=== PATIENT | female | born 1985 | race Caucasian/White ===

== ENCOUNTER 2018-12-13 14:17 | Emergency (ER) | payer SELFPAY ==
[~2018-12-13] VITALS: Ht 167.6 cm; Wt 81.6 kg
[2018-12-13 15:27] LABS: BILIRUBIN,URINE NEGATIVE (NEG); CLARITY,URINE CLEAR; COLOR,URINE YELLOW
[2018-12-13 15:28] LABS: BACTERIA,URINE 0 /HPF (0-FEW); NITRITE,URINE NEGATIVE (NEG); PROTEIN,URINE NEGATIVE (NEG-TRACE); SQUAMOUS EPITHELIAL CELL,UR OCC /LPF; UROBILINOGEN,URINE 0.2 mg/dL (0.2 mg/dL)
[2018-12-13] MEDS ORDERED: cefTRIAXone IM 250 MG VIAL IM ONE (16:00)
[2018-12-13] MEDS ORDERED: AZITHROMYCIN 250 MG TABLET. PO ONE (16:00)
[2018-12-13] MEDS ORDERED: METR500T PO (16:25)
[2018-12-13 16:27] VITALS: BP 115/68
--- NOTE | 2018-12-13 16:27 | PHYS DOC ---
Past Medical History Past Medical History: Anxiety, Depression, Kidney Stone, Other Additional Past Medical Histor: SI/HI Past Surgical History: Cholecystectomy, Tubal ligation Additional Information: 0.5 PPD Alcohol Use: Occasionally Drug Use: Marijuana Adult General Chief Complaint Chief Complaint: MULTIPLE COMPLAINTS HPI HPI Patient is a 33 year old female, accompanied by her mother, with complaints of pelvic pain, vaginal bleeding after intercourse this week, and foul-smelling vaginal odor for the last 4 months. She denied any abdominal pain, constipation, nausea, vomiting, diarrhea, dysuria, hematuria, back pain, or fever. She states that with the onset of symptoms she had began having sexual intercourse with a new partner. Currently, her pain is a 7/10, there are no alleviating or exacerbating factors. Review of Systems Review of Systems Constitutional: Denies fever or chills [] GI: Denies abdominal pain, nausea, vomiting, or diarrhea [] : Denies dysuria or hematuria; see HPI [] Musculoskeletal: Denies back pain or joint pain [] Integument: Denies rash or skin lesions [] Neurologic: Denies headache Complete systems were reviewed and found to be within normal limits, except as documented in this note. Current Medications Current Medications Current Medications Medications (Trade) Dose Ordered Sig/Ria Start Time Stop Time Status Last Admin Dose Admin Azithromycin (Zithromax) 1,000 mg 1X ONCE 12/13/18 16:00 12/13/18 16:01 DC 12/13/18 16:21 1,000 MG Ceftriaxone Sodium (Rocephin Im) 250 mg 1X ONCE 12/13/18 16:00 12/13/18 16:01 DC 12/13/18 16:21 250 MG Allergies Allergies Allergies Coded Allergies Type Severity Reaction Last Updated Verified No Known Drug Allergies 10/17/14 No Physical Exam Physical Exam Constitutional: Well developed, well nourished, no acute distress, non-toxic appearance. [] HENT: Normocephalic, atraumatic, bilateral external ears normal, nose normal. [] Eyes: conjunctiva normal, no discharge. [] Neck: Normal range of motion, no stridor. [] Pelvic Exam: Abdomen: Nontender External Genitalia: Normal Skin Speculum: Normal vaginal mucosa, friable cervix, bloody cervical discharge noted, foul odor noted Bimanual: No adnexal masses or tenderness, cervical motion tenderness negative chandelier sign Skin: Warm, dry, no erythema, no rash. [] Extremities: No cyanosis, ROM intact Neurologic: Alert and oriented X 3, no focal deficits noted. [] Psychologic: Affect normal, judgement normal, mood normal. [] Current Patient Data Vital Signs Vital Signs Date Time Temp Pulse Resp B/P (MAP) Pulse Ox O2 Delivery O2 Flow Rate FiO2 12/13/18 14:27 98.6 84 16 119/68 (85) 98 Room Air 98.6 Lab Values Laboratory Tests Test 12/13/18 14:30 12/13/18 14:31 Urine Collection Type Unknown Urine Color Yellow Urine Clarity Clear Urine pH 6.0 Urine Specific Tichnor 1.015 Urine Protein Negative mg/dL (NEG-TRACE) Urine Glucose (UA) Negative mg/dL (NEG) Urine Ketones (Stick) Negative mg/dL (NEG) Urine Blood Moderate (NEG) Urine Nitrite Negative (NEG) Urine Bilirubin Negative (NEG) Urine Urobilinogen Dipstick 0.2 mg/dL (0.2 mg/dL) Urine Leukocyte Esterase Trace (NEG) Urine RBC 3-5 /HPF (0-2) Urine WBC 1-4 /HPF (0-4) Urine Squamous Epithelial Cells Occ /LPF Urine Bacteria 0 /HPF (0-FEW) POC Urine HCG, Qualitative Hcg negative (Negative) Microbiology 12/13/18 Wet Prep - Final, Complete EKG EKG [] Radiology/Procedures Radiology/Procedures [] Course & Med Decision Making Course & Med Decision Making Pertinent Labs and Imaging studies reviewed. (See chart for details) dx: Bacterial vaginosis, trichomoniasis, suspected contact with sexually transmitted disease Patient was treated prophylactically with 250 mg of IM Rocephin, and 1 g of PO Zithromax. Patient was instructed to avoid having intercourse until the results of gonorrhea and chlamydia testing are available, patient was notified that these results would not be available for 48 hours. If one or both of these tests is positive, patient needs to refrain from intercourse for approximately 1 week following the treatment of any current partners. A prescription for Flagyl 500 mg twice a day 7 days was written. Patient verbalized an understanding of home care, medications, follow-up, and re turn to ED instructions and was in agreement with the plan of care. [] Dragon Disclaimer Dragon Disclaimer This electronic medical record was generated, in whole or in part, using a voice recognition dictation system. Departure Departure Impression: Primary Impression: Infection due to trichomonas (vaginalis) Additional Impressions: Contact with and (suspected) exposure to infections with a predominantly sexual mode of transmission Bacterial vaginosis Disposition: 01 HOME, SELF-CARE Condition: STABLE Referrals: NO PCP (PCP) Patient Instructions: Bacterial Vaginosis, [id number], Sexually Transmitted Disease, Trichomoniasis-Brief Additional Instructions: Fill the prescription and use as directed. Recommend that you go to your local health department for comprehensive sexually transmitted disease testing. You have been treated for a suspected gonorrhea and chlamydia. Avoid having intercourse until the results of gonorrhea and chlamydia testing are available, these results will not be available for 48 hours. If one or both of these tests is positive, you need to refrain from intercourse for approximately 1 week following the treatment of any current partners. Follow-up with your primary care doctor if symptoms persist, return to ER symptoms worsen. Scripts Metronidazole (FLAGYL) 500 Mg Tablet 1 TAB PO BID for 7 Days, #14 TAB 0 Refills Prov: LUIS ELLIOTT APRN 12/13/18 Problem Qualifiers LUIS ELLIOTT APRN Dec 13, 2018 16:27
[2018-12-14 19:14] LABS: GC PROBE Negative (Negative)
== END 2018-12-13 16:43 | disposition home or self-care (01) ==
LOC: ER 14:17
DX: A59.01 Trichomonal vulvovaginitis (principal); N76.0 Acute vaginitis; B96.89 Other specified bacterial agents as the cause of diseases classified elsewhere; Z20.2 Contact with and (suspected) exposure to infections with a predominantly sexual mode of transmission; F41.9 Anxiety disorder, unspecified; F17.200 Nicotine dependence, unspecified, uncomplicated; F32.9 Major depressive disorder, single episode, unspecified; Z87.442 Personal history of urinary calculi; Z90.49 Acquired absence of other specified parts of digestive tract; Z98.51 Tubal ligation status
CPT/HCPCS: 81001; 81025; 87086; 87491; 87591; 96372; 99285; J0696; Q0111; Q0144

== ENCOUNTER 2019-03-26 11:14 | Emergency (ER) | payer SELFPAY ==
[~2019-03-26] VITALS: Ht 167.6 cm; Wt 81.6 kg
[~2019-03-26 11:14] MED LIST: METR500T PO
[2019-03-26 11:50] VITALS: BP 110/65
--- NOTE | 2019-03-26 12:17 | PHYS DOC ---
Past Medical History Past Medical History: Asthma Additional Past Medical Histor: SI/HI Past Surgical History: Cholecystectomy, Tubal ligation Alcohol Use: Occasionally Drug Use: None Adult General Chief Complaint Chief Complaint: COUGH HPI HPI Patient is a 33 year old female who presents with cough for one month and chest tightness. Patient states she's been using cough drops, NyQuil and DayQuil. Patient states she is an asthmatic and smokes. Patient denies fever. Patient states that she does not have an inhaler and needs one. Patient denies any pain. Review of Systems Review of Systems HENT: nasal congestion or denies sore throat [] Respiratory: cough or shortness of breath [] All other systems were reviewed and found to be within normal limits, except as documented in this note. Allergies Allergies Allergies Coded Allergies Type Severity Reaction Last Updated Verified No Known Drug Allergies 10/17/14 No Physical Exam Physical Exam Constitutional: Well developed, well nourished, no acute distress, non-toxic appearance. [] HENT: Normocephalic, atraumatic, bilateral external ears normal, oropharynx moist, no oral exudates, nose normal. [] Eyes: PERRLA, EOMI, conjunctiva normal, no discharge. [] Neck: Normal range of motion, no tenderness, supple, no stridor. [] Cardiovascular:Heart rate regular rhythm, no murmur [] Lungs & Thorax: Bilateral breath sounds clear to auscultation [] Abdomen: Bowel sounds normal, soft, no tenderness, no masses, no pulsatile masses. [] Skin: Warm, dry, no erythema, no rash. [] Neurologic: Alert and oriented X 3, normal motor function, normal sensory function, no focal deficits noted. [] Psychologic: Affect normal, judgement normal, mood normal. Normal Physical Exam [] Current Patient Data Vital Signs Vital Signs Date Time Temp Pulse Resp B/P (MAP) Pulse Ox O2 Delivery O2 Flow Rate FiO2 03/26/19 11:50 98.0 71 18 110/65 (80) 97 Room Air 98.0 EKG EKG [] Radiology/Procedures Radiology/Procedures [] Course & Med Decision Making Course & Med Decision Making Alert and oriented. Speaks in full sentences. Ambulatory with a steady gait. Skin pink warm and dry. Vital signs within normal limits. Lungs are clear to auscultation in all lobes. Dragon Disclaimer Dragon Disclaimer This electronic medical record was generated, in whole or in part, using a voice recognition dictation system. Departure Departure Impression: Primary Impression: Cough Additional Impression: Asthma Disposition: 01 HOME, SELF-CARE Condition: STABLE Referrals: NO PCP (PCP) Patient Instructions: Asthma, Adult, Cough, Adult Additional Instructions: Follow up with primary care provider. Use medications as prescribed. Scripts Albuterol Sulfate (PROAIR HFA INHALER) 8.5 Gm Hfa.aer.ad 1 PUFF INH PRN Q6HRS PRN for SHORTNESS OF BREATH, #1 INHALER 0 Refills Prov: JOSE EVERETT 03/26/19 Codeine Phosphate/Guaifenesin (Guaifen-Codeine 200-20 mg/10Ml) 10 Ml Liquid 10 ML PO PRN Q6HRS PRN for COUGH, #1 LIQUID Prov: JOSE EVERETT ROAD MANAGER 03/26/19 Methylprednisolone (MEDROL) 4 Mg Tab.ds.pk 1 PKG PO UD, #1 PKG Prov: JOSE EVERETT ROAD MANAGER 03/26/19 Problem Qualifiers Additional Impression: Asthma Asthma severity: mild Asthma persistence: intermittent Asthma complication type: uncomplicated Qualified Codes: J45.20 - Mild intermittent asthma, uncomplicated JOSE EVEERTT ROAD MANAGER Mar 26, 2019 12:17
[2019-03-26] MEDS ORDERED: CODE10LI PO (12:24)
[2019-03-26] MEDS ORDERED: METH4TAB2 PO (12:24)
[2019-03-26] MEDS ORDERED: ALBU2.5V8 INH (12:25)
== END 2019-03-26 12:27 | disposition home or self-care (01) ==
LOC: ER 11:14
DX: J45.20 Mild intermittent asthma, uncomplicated (principal); Z98.51 Tubal ligation status; Z90.49 Acquired absence of other specified parts of digestive tract
CPT/HCPCS: 99283

== ENCOUNTER 2019-04-09 11:57 | Emergency (ER) | payer SELFPAY ==
[~2019-04-09] VITALS: Ht 167.6 cm; Wt 81.6 kg
[~2019-04-09 11:57] MED LIST changes: +ALBU2.5V8 INH; +CODE10LI PO; +METH4TAB2 PO
[2019-04-09 12:21] VITALS: BP 128/83
--- NOTE | 2019-04-09 12:43 | RAD ---
PA and lateral chest. HISTORY: Cough PA and lateral views were taken of the chest. There is no pleural effusion. Heart is normal in size. There is no confluent infiltrate. IMPRESSION: 1. No acute infiltrates. Electronically signed by: Kishan Prieto MD (04/09/2019 12:40 PM) [id number]
[2019-04-09] MEDS ORDERED: ALBU2.5V8 IH (13:15)
--- NOTE | 2019-04-09 13:16 | PHYS DOC ---
Past Medical History Past Medical History: Asthma Additional Past Medical Histor: SI/HI Past Surgical History: Cholecystectomy, Tubal ligation Alcohol Use: Occasionally Drug Use: None Adult General Chief Complaint Chief Complaint: COUGH HPI HPI Patient is a 33 year old female patient with history of smoking presenting to the ED today complaining over dry cough for 3 weeks. Patient states she was seen in the ED 2 weeks ago, was given codeine with promethazine, breathing treatments and prednisone, she states symptoms are still present. Denies any fever. Review of Systems Review of Systems Constitutional: Denies fever or chills [] Eyes: Denies change in visual acuity, redness, or eye pain [] HENT: Denies nasal congestion or sore throat [] Respiratory: Reports cough, denies shortness of breath [] Cardiovascular: No additional information not addressed in HPI [] GI: Denies abdominal pain, nausea, vomiting, bloody stools or diarrhea [] : Denies dysuria or hematuria [] Musculoskeletal: Denies back pain or joint pain [] Integument: Denies rash or skin lesions [] Neurologic: Denies headache, focal weakness or sensory changes [] All other systems were reviewed and found to be within normal limits, except as documented in this note. Allergies Allergies Allergies Coded Allergies Type Severity Reaction Last Updated Verified No Known Drug Allergies 10/17/14 No Physical Exam Physical Exam Constitutional: Well developed, well nourished, no acute distress, non-toxic appearance. [] HENT: Normocephalic, atraumatic, bilateral external ears normal, oropharynx moist, no oral exudates, nose normal. [] Eyes: PERRLA, EOMI, conjunctiva normal, no discharge. [] Neck: Normal range of motion, no tenderness, supple, no stridor. [] Cardiovascular:Heart rate regular rhythm, no murmur [] Lungs & Thorax: Bilateral breath sounds clear to auscultation [] Abdomen: Bowel sounds normal, soft, no tenderness, no masses, no pulsatile masses. [] Skin: Warm, dry, no erythema, no rash. [] Back: No tenderness, no CVA tenderness. [] Extremities: No tenderness, no cyanosis, no clubbing, ROM intact, no edema. [] Neurologic: Alert and oriented X 3, normal motor function, normal sensory function, no focal deficits noted. [] Psychologic: Affect normal, judgement normal, mood normal. [] Current Patient Data Vital Signs Vital Signs Date Time Temp Pulse Resp B/P (MAP) Pulse Ox O2 Delivery O2 Flow Rate FiO2 04/09/19 12:21 98.3 103 18 128/83 (98) 94 Room Air 98.3 EKG EKG [] Radiology/Procedures Radiology/Procedures []PROCEDURE: CHEST PA & LATERAL PA and lateral chest. HISTORY: Cough PA and lateral views were taken of the chest. There is no pleural effusion. Heart is normal in size. There is no confluent infiltrate. IMPRESSION: 1. No acute infiltrates. Electronically signed by: Mary Patel MD (04/09/2019 12:40 PM) [id number] DICTATED and SIGNED BY: MARY PATEL MD DATE: 04/09/19 1240 Course & Med Decision Making Course & Med Decision Making Pertinent Labs and Imaging studies reviewed. (See chart for details) This is a 33-year-old female patient presenting to the ED today with a cough for 3 weeks. Patient was seen in the ED 2 weeks ago and was given codeine with promethazine, breathing treatments and prednisone with no relief. Chest x-ray is negative. Patient was advised to consider smoking cessation. Symptoms are likely bronchitis. Encouraged to continue using breathing treatments and [id number] cough medicines as needed. Dragon Disclaimer Dragon Disclaimer This electronic medical record was generated, in whole or in part, using a voice recognition dictation system. Departure Departure Impression: Primary Impression: Acute bronchitis Additional Impression: Smoking addiction Disposition: 01 HOME, SELF-CARE Condition: STABLE Referrals: NO PCP (PCP) follow up with your doctor in 1-2 weeks Patient Instructions: Acute Bronchitis, [id number] Additional Instructions: You were evaluated in the emergency room with symptoms consistent of viral bronchitis. Your chest x-ray is negative for pneumonia, consider smoking cessation. Follow-up with your doctor in 1-2 weeks. You can take [id number] remedies as needed for your cough. Your prescription was sent to the pharmacy Scripts Albuterol Sulfate (Proair Hfa) 8.5 Gm Hfa.aer.ad 2 PUFF IH PRN Q4-6HRS PRN for wheezing for 21 Days, #1 INHALER 0 Refills Prov: KRYSTAL TEMPLE MAMMOGRAPHER 04/09/19 Problem Qualifiers Primary Impression: Acute bronchitis Bronchitis organism: unspecified organism Qualified Codes: J20.9 - Acute bronchitis, unspecified KRYSTAL TEMPLE MAMMOGRAPHER Apr 09, 2019 13:16
== END 2019-04-09 13:19 | disposition home or self-care (01) ==
LOC: ER 11:57
DX: J20.9 Acute bronchitis, unspecified (principal); F17.200 Nicotine dependence, unspecified, uncomplicated; J45.909 Unspecified asthma, uncomplicated; Z98.51 Tubal ligation status; Z90.49 Acquired absence of other specified parts of digestive tract
CPT/HCPCS: 71046; 99284

== ENCOUNTER 2019-05-07 22:13 | Emergency (ER) | payer SELFPAY ==
[~2019-05-07] VITALS: Ht 172.7 cm; Wt 81.6 kg
[~2019-05-07 22:13] MED LIST changes: +ALBU2.5V8 IH
[2019-05-07 22:53] VITALS: BP 107/57
[2019-05-07 23:14] LABS: INFLUENZA A PATIENT NEGATIVE (NEGATIVE); INFLUENZA B PATIENT NEGATIVE (NEGATIVE)
--- NOTE | 2019-05-07 23:45 | PHYS DOC ---
Past Medical History Past Medical History: Asthma Additional Past Medical Histor: SI/HI Past Surgical History: Cholecystectomy, Tubal ligation Alcohol Use: Occasionally Drug Use: None Adult General Chief Complaint Chief Complaint: COUGH HPI HPI Patient is a 34 year old female who presents with has been here twice in the last 6 months because she has a cough that just won't stop. States now she is coughing up green mucus as well as her last week. She states she will cough so hard that she will urinate on herself. She denies fever. She is a smoker. She does have asthma. She states that she has an inhaler at home and has been on antibiotics and codeine cough syrup is not working. Review of Systems Review of Systems Respiratory: cough or denies shortness of breath [] All other systems were reviewed and found to be within normal limits, except as documented in this note. Allergies Allergies Allergies Coded Allergies Type Severity Reaction Last Updated Verified No Known Drug Allergies 10/17/14 No Physical Exam Physical Exam Constitutional: Well developed, well nourished, no acute distress, non-toxic appearance. [] HENT: Normocephalic, atraumatic, bilateral external ears normal, oropharynx moist, no oral exudates, nose normal. [] Eyes: PERRLA, EOMI, conjunctiva normal, no discharge. [] Neck: Normal range of motion, no tenderness, supple, no stridor. [] Cardiovascular:Heart rate regular rhythm, no murmur [] Lungs & Thorax: Bilateral breath sounds clear to auscultation [] Abdomen: Bowel sounds normal, soft, no tenderness, no masses, no pulsatile masses. [] Skin: Warm, dry, no erythema, no rash. [] Back: No tenderness, no CVA tenderness. [] Extremities: No tenderness, no cyanosis, no clubbing, ROM intact, no edema. [] Neurologic: Alert and oriented X 3, normal motor function, normal sensory function, no focal deficits noted. [] Psychologic: Affect normal, judgement normal, mood normal. Normal Physical Exam[] Current Patient Data Vital Signs Vital Signs Date Time Temp Pulse Resp B/P (MAP) Pulse Ox O2 Delivery O2 Flow Rate FiO2 05/07/19 22:53 98.5 82 14 107/57 (74) 97 Room Air 98.5 Lab Values Laboratory Tests Test 05/07/19 22:38 Influenza Type A Antigen Negative (NEGATIVE) Influenza Type B Antigen Negative (NEGATIVE) EKG EKG [] Radiology/Procedures Radiology/Procedures [] Course & Med Decision Making Course & Med Decision Making Patient has a dry cough. Lungs are clear to auscultation in all lobes. Skin [place] warm and dry. Ambulatory with steady gait. No respiratory distress. Bilateral tympanic is pearly white. Throat is pink without exudates. Alert and oriented. Influenza is negative. Vital signs within normal limits. She denies chest pain, shortness of breath, abdominal pain, nausea, vomiting, diarrhea, fever, dizziness, headache, visual changes, weakness, numbness or tingling, ear pain, nasal congestion. Chest xray read as no acute findings. Patient is also tested for Pertussis since her cough has been on going. Dragon Disclaimer Dragon Disclaimer This electronic medical record was generated, in whole or in part, using a voice recognition dictation system. Departure Departure Impression: Primary Impression: Asthma Disposition: HOME, SELF-CARE Condition: STABLE Referrals: NO PCP (PCP) SLIME REDDY MD Patient Instructions: Asthma, Adult Additional Instructions: Follow-up with primary care provider or pulmonary that I have referred due to. Stop smoking. Take medication as prescribed. Scripts Codeine Phosphate/Guaifenesin (Guaifen-Codeine 200-20 mg/10Ml) 10 Ml Liquid 10 ML PO Q6HRS, #200 ML Prov: EBONY EVERETTSumi Wood APR05/08/19 Albuterol Sulfate (PROAIR HFA INHALER) 8.5 Gm Hfa.aer.ad 1 PUFF INH PRN Q6HRS PRN for SHORTNESS OF BREATH, #1 INHALER 0 Refills Prov: RADHAJOSE APRN 05/08/19 Methylprednisolone (MEDROL) 4 Mg Tab.ds.pk 1 PKG PO UD, #1 PKG Prov: JOSE EVERETT APR05/08/19 Problem Qualifiers Primary Impression: Asthma Asthma severity: mild Asthma persistence: persistent Asthma complication type: uncomplicated Qualified Codes: J45.30 - Mild persistent asthma, uncomplicated KARLOSDARCIJOSEAJIT Wood APRN May 07, 2019 23:45
[2019-05-08] MEDS ORDERED: CODE10LI PO (00:30)
[2019-05-08] MEDS ORDERED: METH4TAB2 PO (00:30)
[2019-05-08] MEDS ORDERED: ALBU2.5V8 INH (00:30)
--- NOTE | 2019-05-08 00:42 | RAD ---
CHEST PA LATERAL History: Cough Comparison: April 09, 2019 Findings: 2 views of the chest are submitted. There is no infiltrate, pneumothorax, or effusion. Pericardial cardiac silhouette is within normal limits in size. Impression: 1. There is no radiographic evidence of acute cardiopulmonary disease. Electronically signed by: Alverto Abreu MD (05/08/2019 12:39 AM) [facility]
[2019-05-11 16:08] LABS: B PARAPERTUSSIS PCR Negative (Negative); B PERTUS PCR Negative (Negative)
== END 2019-05-08 00:36 | disposition home or self-care (01) ==
LOC: ER 22:13
DX: J45.30 Mild persistent asthma, uncomplicated (principal)
CPT/HCPCS: 71046; 87801; 87804; 99285